=== PATIENT | female | born 1965 | race Caucasian/White ===

== ENCOUNTER 2021-05-21 12:39 | Emergency (ER) | payer BC ==
[~2021-05-21] VITALS: Ht 165.1 cm; Wt 56.7 kg
[2021-05-21 12:40] VITALS: BP_SYST 109
--- NOTE | 2021-05-21 12:40 | NUR ---
BROUGHT BACK TO BED #1 AND TRIAGED, REPORT GIVEN TO CHAU
--- NOTE | 2021-05-21 12:58 | NUR ---
Note undone in EDM - 05/21/21 at 1306 by [email or web address] PT COMES TO ER ALONE VIA WALKER WITH C.O POSTERIOR NECK PAIN AND OCCIPTAL PAIN WITH MOVEMENT ONLY. DENIES ANY HEADACHES, CHANGES WITH VISION, NO FEVERS/CHILLS. DENIES ANY TRAUMA/FALL. RESP EVEN AND UNLABORED, ON RA@98%. SAFETY PECAUTIONS IN PLACE, WAITING FOR ER MD LEDESMA.
--- NOTE | 2021-05-21 13:44 | NUR ---
Dr. Alba at bedside to assess.
[2021-05-21] MEDS ORDERED: KETOROLAC TROMETHAMINE 30 MG VIAL IVP ONE (14:00)
[2021-05-21] MEDS ORDERED: NACL 0.9% 1,000 ML IV ONE (14:00)
--- NOTE | 2021-05-21 14:10 | NUR ---
# 20 gauge angiocath placed to left ac. Use of asceptic technique. Opsite placed over site. Blood return noted. Blood for lab drawn from site. Flushed with 10 cc of normal saline. No evidence of infiltration noted. Patient tolerated well.
[2021-05-21 14:19] LABS: BASOPHILS % (AUTO) 0.1 % (0.0-2.0); EOSINOPHILS % (AUTO) 0.1 % (0.0-4.0); HEMATOCRIT 40.9 % (36-48); HEMOGLOBIN 13.9 g/dL (12.0-16.0); LYMPHOCYTES # (AUTO) 0.9 K/uL (1.0-5.5); LYMPHOCYTES % (AUTO) 36.2 % (20.5-51.5); MEAN CORPUSCULAR HEMOGLOBIN 31 pg (27-31); MEAN CORPUSCULAR HGB CONC 34 % (32-36); MEAN CORPUSCULAR VOLUME 91 fL (79.0-98.0); MONOCYTES # (AUTO) 0.4 K/uL (0.0-1.0); MONOCYTES % (AUTO) 14.8 % (1.7-9.3); NEUTROPHILS # (AUTO) 1.2 K/uL (1.8-7.7); NEUTROPHILS % (AUTO) 48.8 % (40.0-70.0); PLATELET COUNT (AUTO) 120 K/uL (130-430); WHITE BLOOD COUNT (AUTO) 2.5 K/uL (4.8-10.8)
[2021-05-21] MEDS ORDERED: LEVOFLOXACIN IN DEXTROSE 5 % 100 ML IV ONE (14:30)
[2021-05-21 14:34] LABS: BILIRUBIN,URINE NEGATIVE (NEGATIVE); BLOOD, URINE NEGATIVE (NEGATIVE); CLARITY/URINE CLEAR (CLEAR); COLOR,URINE YELLOW (YELLOW); GLUCOSE,URINE NEGATIVE (NEGATIVE); KETONES,URINE NEGATIVE (NEGATIVE); LEUKOCYTE ESTERASE ,URINE NEGATIVE (NEGATIVE); NITRITE, URINE POSITIVE (NEGATIVE); PH,URINE 5.5 (5.0-8.0); PROTEIN URINE NEGATIVE (NEGATIVE); UROBILINOGEN,URINE 0.2 (0.2-1.0)
[2021-05-21 14:37] LABS: CALCIUM 8.6 mg/dL (8.4-11.0); CREATININE 0.72 mg/dL (0.55-1.30); POTASSIUM 3.8 mmol/L (3.5-5.1)
[2021-05-21 14:42] LABS: TOTAL BILIRUBIN 0.2 mg/dL (0.0-1.0)
[2021-05-21 14:43] LABS: ALBUMIN 3.9 g/dL (3.4-4.8)
[2021-05-21 15:00] LABS: BACTERIA,URINE FEW /HPF (None Seen); RBC,URINE 0-3 /HPF (0-3); WBC,URINE 0-3 /HPF (0-3)
[2021-05-21] MEDS ORDERED: NITR-85 PO (15:22)
[2021-05-21] MEDS ORDERED: HYDR-3917 PO (15:22)
[2021-05-21] MEDS ORDERED: IBUP-1969 PO (15:22)
[2021-05-21 16:39] VITALS: BP_SYST 104
--- NOTE | 2021-05-21 16:40 | NUR ---
Patient given written and verbal discharge instructions and verbalizes understanding. ER MD discussed with patient the results and treatment provided. Patient in stable condition. ID arm band removed. IV catheter removed intact and dressing applied, no active bleeding. Rx of NORCO, IBUPROFEN, MACROBID given. Patient educated on pain management and to follow up with PMD. Pain Scale . Opportunity for questions provided and answered. Medication side effect fact sheet provided.
== END 2021-05-21 16:40 | disposition home or self-care (01) ==
LOC: SED 12:39
DX: M54.50 Low back pain, unspecified (principal); Z88.0 Allergy status to penicillin; Z88.5 Allergy status to narcotic agent; Z79.899 Other long term (current) drug therapy
CPT/HCPCS: 36415; 72100; 80053; 81000; 81025; 83605; 83690; 85025; 87040; 96361; 96374; 99284; J1885; J1956; J7030

== ENCOUNTER 2022-01-26 13:47 | Emergency (ER) | payer BC ==
[~2022-01-26] VITALS: Ht 165.1 cm; Wt 69.4 kg
[~2022-01-26 13:47] MED LIST: HYDR-3917 PO; IBUP-1969 PO; NITR-85 PO
--- NOTE | 2022-01-26 13:50 | NUR ---
Patient to ER bed 04 to gown for evaluation. Side rails up.
[2022-01-26 13:52] VITALS: BP_SYST 107
--- NOTE | 2022-01-26 14:00 | NUR ---
Pt brought by self, A&Ox4, pt presents to ER with bilateral lower back pain , states worse in the L side, also c/o pain with urination, Hx of multiple UTIs, pt afebrile, skin pink and warm, cap refill <3, VSS.
--- NOTE | 2022-01-26 14:23 | NUR ---
ER Dr. RESENDIZ at bedside examining patient.
[2022-01-26 14:53] LABS: BILIRUBIN,URINE NEGATIVE (NEGATIVE); BLOOD, URINE NEGATIVE (NEGATIVE); CLARITY/URINE CLEAR (CLEAR); COLOR,URINE YELLOW (YELLOW); GLUCOSE,URINE NEGATIVE (NEGATIVE); KETONES,URINE NEGATIVE (NEGATIVE); LEUKOCYTE ESTERASE ,URINE TRACE (NEGATIVE); NITRITE, URINE NEGATIVE (NEGATIVE); PROTEIN URINE NEGATIVE (NEGATIVE); UROBILINOGEN,URINE 0.2 (0.2-1.0)
[2022-01-26 14:57] LABS: BASOPHILS % (AUTO) 0.4 % (0.0-2.0); EOSINOPHILS # (AUTO) 0.1 K/uL (0.0-0.4); EOSINOPHILS % (AUTO) 1.7 % (0.0-4.0); HEMATOCRIT 40.7 % (36-48); HEMOGLOBIN 13.5 g/dL (12.0-16.0); LYMPHOCYTES # (AUTO) 2.1 K/uL (1.0-5.5); LYMPHOCYTES % (AUTO) 45.2 % (20.5-51.5); MEAN CORPUSCULAR HEMOGLOBIN 30 pg (27-31); MEAN CORPUSCULAR HGB CONC 33 % (32-36); MEAN CORPUSCULAR VOLUME 90 fL (79.0-98.0); MONOCYTES # (AUTO) 0.3 K/uL (0.0-1.0); MONOCYTES % (AUTO) 7.2 % (1.7-9.3); NEUTROPHILS # (AUTO) 2.1 K/uL (1.8-7.7); NEUTROPHILS % (AUTO) 45.5 % (40.0-70.0); PLATELET COUNT (AUTO) 188 K/uL (130-430); RED BLOOD CELL COUNT(AUTO) 4.51 MIL/uL (4.2-6.2); RED CELL DISTRIBUTION WIDTH 13.4 % (9.0-15.0); WHITE BLOOD COUNT (AUTO) 4.6 K/uL (4.8-10.8)
[2022-01-26 15:09] LABS: CALCIUM 8.9 mg/dL (8.4-11.0); CREATININE 0.79 mg/dL (0.55-1.30); POTASSIUM 4.5 mmol/L (3.5-5.1)
[2022-01-26 15:12] LABS: BACTERIA,URINE FEW /HPF (None Seen); RBC,URINE 0-3 /HPF (0-3)
[2022-01-26 15:15] LABS: ALBUMIN 3.7 g/dL (3.4-4.8); TOTAL BILIRUBIN 0.4 mg/dL (0.0-1.0)
[2022-01-26] MEDS ORDERED: SULFAMETHOXAZOLE/TRIMETHOPR DS 1 TABLET PO ONE (15:45)
[2022-01-26] MEDS ORDERED: PHEN-726 PO (15:47)
[2022-01-26] MEDS ORDERED: SULF1TAB48 PO (15:47)
[2022-01-26 16:01] VITALS: BP_SYST 107
--- NOTE | 2022-01-26 16:02 | NUR ---
Patient given written and verbal discharge instructions and verbalizes understanding. Dr. MARTÍN GARCIA MD discussed with patient the results and treatment provided. Patient in stable condition. ID arm band removed. Rx of bactrim, pyridium given. Patient educated on pain management and to follow up with PMD. Pain Scale 0/10 Opportunity for questions provided and answered. Medication side effect fact sheet provided.
== END 2022-01-26 16:02 | disposition home or self-care (01) ==
LOC: SED 13:47
DX: N10 Acute pyelonephritis (principal); M54.50 Low back pain, unspecified; Z88.0 Allergy status to penicillin; Z88.6 Allergy status to analgesic agent; Z88.5 Allergy status to narcotic agent; Z79.899 Other long term (current) drug therapy
CPT/HCPCS: 36415; 80053; 81000; 81025; 83690; 85025; 87086; 99283

== ENCOUNTER 2023-10-05 07:08 | Day surgery (SDC) | payer OTHER ==
[2023-10-03 09:31] LABS: BILIRUBIN,URINE NEGATIVE (NEGATIVE); BLOOD, URINE NEGATIVE (NEGATIVE); CLARITY/URINE SL CLOUDY (CLEAR); COLOR,URINE YELLOW (YELLOW); GLUCOSE,URINE NEGATIVE (NEGATIVE); KETONES,URINE NEGATIVE (NEGATIVE); LEUKOCYTE ESTERASE ,URINE 1+ (NEGATIVE); NITRITE, URINE NEGATIVE (NEGATIVE); PH,URINE 7.5 (5.0-8.0); PROTEIN URINE NEGATIVE (NEGATIVE); UROBILINOGEN,URINE 0.2 (0.2-1.0)
[2023-10-03 09:37] LABS: BASOPHILS % (AUTO) 0.5 % (0.0-2.0); EOSINOPHILS # (AUTO) 0.1 K/uL (0.0-0.4); EOSINOPHILS % (AUTO) 2.1 % (0.0-4.0); HEMOGLOBIN 14.2 g/dL (12.0-16.0); MEAN CORPUSCULAR HEMOGLOBIN 31 pg (27-31); MEAN CORPUSCULAR HGB CONC 34 % (32-36); MEAN CORPUSCULAR VOLUME 92 fL (79.0-98.0); MONOCYTES # (AUTO) 0.4 K/uL (0.0-1.0); MONOCYTES % (AUTO) 7.5 % (1.7-9.3); NEUTROPHILS # (AUTO) 2.2 K/uL (1.8-7.7); NEUTROPHILS % (AUTO) 47.9 % (40.0-70.0); PLATELET COUNT (AUTO) 189 K/uL (130-430); RED BLOOD CELL COUNT(AUTO) 4.55 MIL/uL (4.2-6.2); RED CELL DISTRIBUTION WIDTH 13.5 % (9.0-15.0); WHITE BLOOD COUNT (AUTO) 4.7 K/uL (4.8-10.8)
[2023-10-03 09:54] LABS: BACTERIA,URINE MODERATE /HPF (None Seen); RBC,URINE 0-3 /HPF (0-3)
[2023-10-03 09:55] LABS: MUCUS,URINE 2+ /LPF (None Seen); URINE AMORPHOUS URATE 2+ /HPF (None Seen)
[~2023-10-05] VITALS: Ht 165.1 cm; Wt 63.5 kg
[2023-10-05] MEDS: ceFAZolin SODIUM 2 GM in D5W 100 ML IV ONE (07:00)
[~2023-10-05 07:08] MED LIST changes: +PHEN-726 PO; +SULF1TAB48 PO; +ceFAZolin SODIUM 2 GM in D5W 100 ML IV ONE
[2023-10-05] MEDS ORDERED: ONDANSETRON HCL 4 MG/2 ML VIAL ONE ×2 (09:14→12:03)
[2023-10-05] MEDS ORDERED: BUPIVACAINE /PF 0.5% 30 ML VIAL ONE (09:14)
[2023-10-05] MEDS ORDERED: LR 1,000 ML IV.SOLN IV ONE (09:14)
[2023-10-05] MEDS ORDERED: fentaNYL CITRATE/PF 100 MCG/2 ML AMP ONE (09:14)
[2023-10-05] MEDS ORDERED: DEXTROSE 50% JECT 50 ML DISP.SYRIN ONE (09:14)
[2023-10-05] MEDS ORDERED: NS IRRIG SOLN 1000 ML IR ONE (09:14)
[2023-10-05] MEDS ORDERED: FUROSEMIDE 40 MG/4 ML VIAL ONE (09:14)
[2023-10-05] MEDS ORDERED: MIDAZOLAM HCL 2 MG/2 ML VIAL (VERSED) ONE (09:14)
[2023-10-05] MEDS ORDERED: DEXAMETHASONE SOD PHOSPHATE 4 MG/ML VIAL ONE (09:14)
[2023-10-05] MEDS ORDERED: CLINDAMYCIN 2% VAGINAL CREAM VG ONE (09:14)
[2023-10-05] MEDS ORDERED: KETOROLAC TROMETHAMINE 30 MG VIAL ONE (09:14)
[2023-10-05] MEDS ORDERED: PROPOFOL 200MG/ 20ML VIAL (DIPRIVAN) IV ONE (09:14)
[2023-10-05] MEDS ORDERED: LIDOCAINE 2%, 20 ML MDV ONE (09:14)
[2023-10-05] MEDS ORDERED: SEVOFLURANE 15 MIN GAS INH ONE (09:14)
[2023-10-05] MEDS ORDERED: METOCLOPRAMIDE HCL 10 MG/2 ML VIAL ONE (09:14)
[2023-10-05] MEDS ORDERED: LIDOCAINE/EPI 1% 1:100000 20 ML VIAL ONE (09:14)
[2023-10-05] MEDS ORDERED: LR 1,000 ML IV SCH (11:00)
[2023-10-05] MEDS ORDERED: HYDROcodone/ACETAMIN 5-325 MG TAB (NORCO/ VICODIN) PO PRN (11:00)
[2023-10-05] MEDS ORDERED: KETOROLAC TROMETHAMINE 30 MG VIAL IVP PRN (11:00)
[2023-10-05] MEDS ORDERED: HYDROmorphone 1 MG/ML INJ. CARTRIDGE IVP PRN (11:00)
[2023-10-05] MEDS ORDERED: METOCLOPRAMIDE HCL 10 MG/2 ML VIAL IVP PRN (11:00)
[2023-10-05] MEDS ORDERED: OXYCODONE/ACETAMINOPHEN 5-325 TABLET PO PRN (11:00)
[2023-10-05] MEDS ORDERED: MEPERIDINE HCL/PF 25 MG/ML DISP.SYRIN ONE (11:17)
[2023-10-05] MEDS: MEPERIDINE HCL/PF 25 MG/ML DISP.SYRIN IVP PRN (11:18)
[2023-10-05] MEDS: ONDANSETRON HCL 4 MG/2 ML VIAL IVP PRN (11:59)
[2023-10-05] MEDS ORDERED: CLI.1P TD (12:36)
[2023-10-05] MEDS ORDERED: L.RH1CAP PO (12:36)
[2023-10-05] MEDS ORDERED: MULT-1357 (12:36)
[2023-10-05] MEDS ORDERED: CHOL200075 (12:36)
[2023-10-05] MEDS ORDERED: MAGN400T10 PO (12:36)
[2023-10-05] MEDS ORDERED: SENN8.6T19 PO (12:36)
[2023-10-05 16:45] VITALS: BP_SYST 118; PULSE 89; RESP 18; TEMP 97.2; O2SAT 94
[2023-10-05 16:50] VITALS: BP_SYST 101; RESP 18; TEMP 97.5; O2SAT 100
[2023-10-05 20:30] VITALS: BP_SYST 92; PULSE 93; RESP 17; TEMP 97.9; O2SAT 96
[2023-10-05] MEDS: KETOROLAC TROMETHAMINE 30 MG VIAL IM SCH (20:52)
[2023-10-05] MEDS: ceFAZolin SODIUM 2 GM in D5W 100 ML IV SCH (21:53)
[2023-10-05 21:55] VITALS: BP_SYST 106; PULSE 89; RESP 17; TEMP 97; O2SAT 97
[2023-10-05] MEDS: OXYCODONE/ACETAMINOPHEN 5-325 TABLET PO PRN (22:02)
[2023-10-06] MEDS ORDERED: HYDROmorphone 1 MG/ML INJ. CARTRIDGE IM PRN (01:30)
[2023-10-06] MEDS ORDERED: HYDROmorphone 2 MG/ML VIAL IVP PRN (01:30)
[2023-10-06] MEDS: HYDROmorphone 1 MG/ML INJ. CARTRIDGE IVP PRN (02:07)
[2023-10-06 05:33] VITALS: BP_SYST 100; PULSE 77; RESP 18; TEMP 97.6; O2SAT 97
[2023-10-06 08:00] VITALS: BP_SYST 115; PULSE 71; RESP 16; TEMP 97.1; O2SAT 99
[2023-10-06] MEDS: ONDANSETRON HCL 4 MG/2 ML VIAL IVP PRN (08:08)
[2023-10-06 09:12] VITALS: O2SAT 97
[2023-10-06 10:58] VITALS: BP_SYST 97; PULSE 85; RESP 16; TEMP 98.6; O2SAT 97
[2023-10-06 15:43] VITALS: BP_SYST 112; PULSE 78; RESP 16; TEMP 98.6; O2SAT 96
[2023-10-06 17:16] VITALS: BP_SYST 112; PULSE 78; RESP 16; TEMP 98.6; O2SAT 96
== END 2023-10-06 17:34 | disposition home or self-care (01) ==
LOC: SMU 07:08 → SDS 07:08 → SMU 13:00 → SDS 10-06 17:34
PROVIDERS: ATTEND Specialist
DX: N39.3 Stress incontinence (female) (male) (principal); N95.2 Postmenopausal atrophic vaginitis; N81.11 Cystocele, midline; N81.6 Rectocele; R78.0 Finding of alcohol in blood; Z88.0 Allergy status to penicillin; Z88.8 Allergy status to other drugs, medicaments and biological substances; Z88.5 Allergy status to narcotic agent; Z79.899 Other long term (current) drug therapy
CPT/HCPCS: 81000; 87081; 81001; 84702; 85025; 87086; 36415; 93005; 71046; 57288; 57260; 88302; J3490; J1100; J1885 ×2; J2765; J3465; J2405 ×2; J2704; J3010; J2175; J7060; J7120; C1771; J1170; 81015; J1940; J2001